=== PATIENT | female | born 1965 | race Caucasian/White ===

== ENCOUNTER 2017-12-29 17:14 | Emergency (ER) | payer BC, OTHER ==
[~2017-12-29] VITALS: Ht 165.1 cm; Wt 75.7 kg
[~2017-12-29 17:14] MED LIST: CALC117719 PO; GABA-486 PO; GABA600T2 PO; INSU100I29 SQ; INSU100V5 SQ; OMEP40CA36 PO; TRAM50TA2 PO
[2017-12-29 17:39] LABS: ABG BASE EXCESS -1.9 MMOL/L (-2.5-2.5); ABG OXYGEN SATURATION 98 % (94-100); ABG PCO2 38 MMHG (35-45); ABG PH 7.38 (7.37-7.43); ABG PO2 86 MMHG (79-93); ABG TCO2 24.1 MMOL/L (21.0-31.0); ALLENS TEST POSITIVE; INSPIRED O2 ROOM AIR; PATIENT TEMP 94.9; VENTILATOR NO
[2017-12-29] MEDS ORDERED: NS IV 1000 ML 1,000 ML IV ONE ×2 (17:49→17:59)
[2017-12-29] MEDS ORDERED: inSUlin (REGULAR) HUMAN 1 UNIT/0.01 ML (CHARGE PER UNIT) IV STA (17:49)
--- NOTE | 2017-12-29 17:57 | ED General ---
General Chief Complaint: Glucose Problems Stated Complaint: HIGH BP Nursing Triage Note: PT TO [facility] WITH CC OF HYPERGLYCEMIA, BLOOD SUGAR TOO HIGH TO READ. IN ER STATES HE THOUGHT SHE HAS NOT TAKEN HER INSULIN FOR 3 DAYS. AMS Nursing Sepsis Screen: No Definite Risk Source of Information: Patient, EMS, Spouse Exam Limitations: Other (patient unable to give history) History of Present Illness Date Seen by Provider: Dec 29, 2017 Time Seen by Provider: 17:57 Initial Comments 52-year-old female patient presents to the emergency department via [facility] with complaints of hyperglycemia, N/V, and altered mental status. reports patient has not taken her insulin for at least 3-4 days. Timing/Duration: 3-4 Days, Getting Worse Allergies and Home Medications Allergies Coded Allergies: No Known Drug Allergies (Unverified , 06/29/16) Home Medications Calcium Carbonate 1,177 Mg Tab.chew, 1,177-2,354 MG PO DAILY PRN for STOMACH UPSET, (Reported) Gabapentin 600 Mg Tablet, 600 MG PO BID, (Reported) Insulin Detemir 100 Unit/1 Ml Insuln.pen, 30 UNITS SQ DAILY, (Reported) LAST FILLED 04/17/16 #15 ML Omeprazole 40 Mg Capsule.dr, 40 MG PO DAILY, (Reported) Tramadol HCl 50 Mg Tablet, 50-100 MG PO Q8H PRN for PAIN, #30 LAST FILLED 01/12/16 #100 Prescribed by: ANGELY MULLINS on 06/30/16 0819 Constitutional: other (patient unable to provide review of systems. Systems obtained from family member.) Gastrointestinal: nausea, vomiting Past Ggfngfc-Ywyiwj-Lbxfnn Hx Patient Social History Alcohol Use: Rarely Uses Alcohol Beverage of Choice: Vodka Recreational Drug Use: No Smoking Status: Current Everyday Smoker Type Used: Cigarettes Recent Foreign Travel: No Contact w/Someone Who Travel: No Recent Infectious Disease Expo: No Recent Hopitalizations: No Immunizations Up To Date Tetanus Booster (TDap): Less than 5yrs PED Vaccines UTD: Yes Date of Influenza Vaccine: Aug 24, 2017 Seasonal Allergies Seasonal Allergies: No Surgeries History of Surgeries: Yes Surgeries: Ear Surgery Respiratory History of Respiratory Disorde: No Cardiovascular History of Cardiac Disorders: Yes Cardiac Disorders: Hypertension Neurological History of Neurological Disord: Yes Neurological Disorders: Neuropathy Reproductive System Hx Reproductive Disorders: No Female Reproductive Disorders: Denies Genitourinary History of Genitourinary Disor: No Gastrointestinal History of Gastrointestinal Di: Yes Gastrointestinal Disorders: Gastroesophageal Reflux, Ulcer Musculoskeletal History of Musculoskeletal Dis: No Endocrine History of Endocrine Disorders: Yes Endocrine Disorders: Diabetes, Insulin dep HEENT History of HEENT Disorders: Yes HEENT Disorders: Cataract Cancer History of Cancer: No Psychosocial History of Psychiatric Problem: No Integumentary History of Skin or Integumenta: No Blood Transfusions History of Blood Disorders: No Reviewed Nursing Assessment Reviewed/Agree w Nursing PMH: Yes Family Medical History Significant Family History: No Pertinent Family Hx Physical Exam Vital Signs Vital Signs - First Documented 12/29/17 17:34 Temp 94.9 Pulse 113 Resp 18 B/P (MAP) 115/76 (89) Pulse Ox 97 O2 Delivery Room Air Capillary Refill : Less Than 3 Seconds General Appearance: No Apparent Distress, Chronically ill Eyes: Bilateral Eye Normal Inspection, Bilateral Eye PERRL, Bilateral Eye EOMI HEENT: PERRL/EOMI, TMs Normal, Normal ENT Inspection, Pharynx Normal, No Moist Mucous Membranes Neck: Normal Inspection, Non Tender, Supple Respiratory: Lungs Clear, Normal Breath Sounds, No Accessory Muscle Use, No Respiratory Distress Cardiovascular: No Edema, No Murmur, Normal Peripheral Pulses, Tachycardia Gastrointestinal: Normal Bowel Sounds, Non Tender, Soft, No Distended, No Guarding, No Rebound Back: Normal Inspection, No CVA Tenderness, No Vertebral Tenderness Extremity: Normal Capillary Refill, No Calf Tenderness, No Pedal Edema Neurologic/Psychiatric: Other (drowsy, arouses to verbal stimuli. Agitated. Moving all 4 extremities.) Skin: Normal Color, Warm/Dry, No Cool, No Cyanosis, No Diaphoresis, No Jaundice Focused Exam Evaluation Lactate Level Laboratory Tests 12/29/17 17:25: Lactic Acid Level 3.50*H 12/29/17 19:55: Lactic Acid Level 2.37*H Lactic Acid Level Laboratory Tests Test 12/29/17 19:55 Lactic Acid Level 2.37 MMOL/L (0.50-2.00) *H Progress/Results/Core Measures Suspected Sepsis Recent Fever Within 48 Hours: No Infection Criteria Present: None New/Unexplained Altered Menta: Yes Sepsis Screen: No Definite Risk Sepsis Diagnosis: SIRS Temperature:94.9 Pulse: 113 Respiratory Rate: 18 Laboratory Tests 12/29/17 17:25: White Blood Count 24.0H Blood Pressure 115 /76 Mean: 89 Laboratory Tests 12/29/17 17:25: Lactic Acid Level 3.50*H 12/29/17 19:55: Lactic Acid Level 2.37*H Laboratory Tests 12/29/17 17:25: Creatinine 4.97H, INR Comment 1.0, Platelet Count 229, Total Bilirubin 0.5 12/29/17 19:40: Creatinine 4.29#H Results/Orders Lab Results Laboratory Tests Test 12/29/17 17:20 12/29/17 17:25 12/29/17 19:17 12/29/17 19:25 Range/Units Glucometer > 600 *H > 600 *H 70-110 MG/DL White Blood Count 24.0 H 4.3-11.0 10^3/uL Red Blood Count 4.48 4.35-5.85 10^6/uL Hemoglobin 13.5 11.5-16.0 G/DL Hematocrit 46 35-52 % Mean Corpuscular Volume 103 H 80-99 FL Mean Corpuscular Hemoglobin 30 25-34 PG Mean Corpuscular Hemoglobin Concent 29 L 32-36 G/DL Red Cell Distribution Width 13.8 10.0-14.5 % Platelet Count 229 130-400 10^3/uL Mean Platelet Volume 7.4-10.4 FL Neutrophils (%) (Auto) 90 H 42-75 % Lymphocytes (%) (Auto) 4 L 12-44 % Monocytes (%) (Auto) 6 0-12 % Eosinophils (%) (Auto) 0 0-10 % Basophils (%) (Auto) 0 0-10 % Neutrophils # (Auto) 21.7 H 1.8-7.8 X 10^3 Lymphocytes # (Auto) 1.0 1.0-4.0 X 10^3 Monocytes # (Auto) 1.3 H 0.0-1.0 X 10^3 Eosinophils # (Auto) 0.0 0.0-0.3 10^3/uL Basophils # (Auto) 0.0 0.0-0.1 10^3/uL Neutrophils % (Manual) 82 % Lymphocytes % (Manual) 6 % Monocytes % (Manual) 7 % Eosinophils % (Manual) 0 % Basophils % (Manual) 0 % Band Neutrophils 5 % Blood Morphology Comment NORMAL Prothrombin Time 12.9 12.2-14.7 SEC INR Comment 1.0 0.8-1.4 Activated Partial Thromboplast Time 20 L 24-35 SEC Blood Gas Puncture Site LEFT RADIAL Blood Gas Patient Temperature 94.9 Arterial Blood pH 7.38 7.37-7.43 Arterial Blood Partial Pressure CO2 38 35-45 MMHG Arterial Blood Partial Pressure O2 86 79-93 MMHG Arterial Blood HCO3 23 23-27 MMOL/L Arterial Blood Total CO2 24.1 21.0-31.0 MMOL/L Arterial Blood Oxygen Saturation 98 94-100 % Arterial Blood Base Excess -1.9 -2.5-2.5 MMOL/L [place] Test POSITIVE Blood Gas Ventilator Setting NO Blood Gas Inspired Oxygen ROOM AIR Sodium Level 137 135-145 MMOL/L Potassium Level 4.0 3.6-5.0 MMOL/L Chloride Level 76 L 98-107 MMOL/L Carbon Dioxide Level 22 21-32 MMOL/L Anion Gap 39 H 5-14 MMOL/L Blood Urea Nitrogen 125 *H 7-18 MG/DL Creatinine 4.97 H 0.60-1.30 MG/DL Estimat Glomerular Filtration Rate 9 BUN/Creatinine Ratio 25 Glucose Level 1557 *H 70-105 MG/DL Lactic Acid Level 3.50 *H 0.50-2.00 MMOL/L Calcium Level 10.6 H 8.5-10.1 MG/DL Magnesium Level 3.6 H 1.8-2.4 MG/DL Total Bilirubin 0.5 0.1-1.0 MG/DL Aspartate Amino Transf (AST/SGOT) 16 5-34 U/L Alanine Aminotransferase (ALT/SGPT) 16 0-55 U/L Alkaline Phosphatase 132 40-136 U/L Total Creatine Kinase 535 H 29-168 U/L Creatine Kinase MB 7.1 *H <6.6 NG/ML Myoglobin 1715.7 H 10.0-92.0 NG/ML Troponin I < 0.30 <0.30 NG/ML Total Protein 8.5 H 6.4-8.2 GM/DL Albumin 4.2 3.2-4.5 GM/DL Lipase 41 8-78 U/L TSH [place] Testing 0.61 0.35-4.94 UIU/ML Serum Alcohol < 10 <10 MG/DL Urine Color YELLOW Urine Clarity CLEAR Urine pH 5 5-9 Urine Specific [place] 1.020 1.016-1.022 Urine Protein NEGATIVE NEGATIVE Urine Glucose (UA) 4+ H NEGATIVE Urine Ketones 2+ H NEGATIVE Urine Nitrite NEGATIVE NEGATIVE Urine Bilirubin NEGATIVE NEGATIVE Urine Urobilinogen NORMAL NORMAL MG/DL Urine Leukocyte Esterase 2+ H NEGATIVE Urine RBC (Auto) 1+ H NEGATIVE Urine RBC 2-5 H /HPF Urine WBC 5-10 H /HPF Urine Squamous Epithelial Cells 0-2 /HPF Urine Crystals NONE /LPF Urine Bacteria MODERATE H /HPF Urine Casts NONE /LPF Urine Mucus NEGATIVE /LPF Urine Culture Indicated YES Urine Opiates Screen NEGATIVE NEGATIVE Urine Oxycodone Screen NEGATIVE NEGATIVE Urine Methadone Screen NEGATIVE NEGATIVE Urine Propoxyphene Screen NEGATIVE NEGATIVE Urine Barbiturates Screen NEGATIVE NEGATIVE Ur Tricyclic Antidepressants Screen NEGATIVE NEGATIVE Urine Phencyclidine Screen NEGATIVE NEGATIVE Urine Amphetamines Screen NEGATIVE NEGATIVE Urine Methamphetamines Screen NEGATIVE NEGATIVE Urine Benzodiazepines Screen NEGATIVE NEGATIVE Urine Cocaine Screen NEGATIVE NEGATIVE Urine Cannabinoids Screen NEGATIVE NEGATIVE Test 12/29/17 19:40 12/29/17 19:55 Range/Units Sodium Level 146 H 135-145 MMOL/L Potassium Level 3.0 L 3.6-5.0 MMOL/L Chloride Level 96 L 98-107 MMOL/L Carbon Dioxide Level 16 L 21-32 MMOL/L Anion Gap 34 H 5-14 MMOL/L Blood Urea Nitrogen 121 *H 7-18 MG/DL Creatinine 4.29 #H 0.60-1.30 MG/DL Estimat Glomerular Filtration Rate 11 BUN/Creatinine Ratio 28 Glucose Level 1192 *H 70-105 MG/DL Calcium Level 9.0 8.5-10.1 MG/DL Lactic Acid Level 2.37 *H 0.50-2.00 MMOL/L My Orders Orders - AMPARO LECHUGA PA Saline Lock/Iv-Start (12/29/17 17:49) Ekg Tracing (12/29/17 17:49) Monitor-Rhythm Ecg Trace Only (12/29/17 17:49) Cbc With Automated Diff (12/29/17 17:49) Comprehensive Metabolic Panel (12/29/17 17:49) Troponin I (12/29/17 17:49) Ua Culture If Indicated (12/29/17 17:49) Ns Iv 1000 Ml (Sodium Chloride 0.9%) (12/29/17 17:49) Chest 1 View, Ap/Pa Only (12/29/17 17:49) Insulin (Regular) Human (Humulin R (Per (12/29/17 17:49) Creatine Kinase (12/29/17 17:59) Creatine Kinase Mb (12/29/17 17:59) Lactic Acid Analyzer (12/29/17 17:59) Lipase (12/29/17 17:59) Magnesium (12/29/17 17:59) Protime With Inr (12/29/17 17:59) Partial Thromboplastin Time (12/29/17 17:59) Thyroid Analyzer (12/29/17 17:59) Blood Culture (12/29/17 17:59) Myoglobin Serum (12/29/17 17:59) Ns Iv 1000 Ml (Sodium Chloride 0.9%) (12/29/17 18:00) Ns Iv 1000 Ml (Sodium Chloride 0.9%) (12/29/17 17:59) Manual Differential (12/29/17 17:25) Catheter(Urinary) Insert & Ass 03,15 (12/29/17 18:12) Alcohol (12/29/17 18:12) Drug Screen Stat (Urine) (12/29/17 18:12) Pantoprazole Injection (Protonix Injecti (12/29/17 18:15) Sputum Culture (12/29/17 18:14) Vital Signs Adult Sepsis Patie Q1H (12/29/17 18:14) Ceftriaxone Injection (Rocephin Injectio (12/29/17 18:14) Remove Rings In Anticipation O (12/29/17 18:14) Basic Metabolic Panel (12/29/17 19:34) Urine Culture (12/29/17 19:25) Insulin Regular Tpn/Drip Only (Humulin R (12/29/17 21:30) Ns (Ivpb) (Sodium Chloride 0.9%) (12/29/17 21:36) Insulin (Regular) Human (Humulin R (Per (12/29/17 21:37) Normal Saline (Ns ([place] Bag)) (12/29/17 21:38) Medications Given in ED Current Medications Medications Dose Ordered Sig/Naila Route Start Time Stop Time Status Last Admin Dose Admin Pantoprazole 80 mg ONCE ONCE IV 12/29/17 18:15 12/29/17 18:16 DC 12/29/17 18:44 80 MG Sodium Chloride 1,000 ml @ 0 mls/hr Q0M ONCE IV 12/29/17 17:49 12/29/17 17:54 DC 12/29/17 17:35 1,000 MLS/HR Sodium Chloride 1,000 ml @ 0 mls/hr Q0M ONCE IV 12/29/17 17:59 12/29/17 18:01 DC 12/29/17 17:35 1,000 MLS/HR Vital Signs/I&O Vital Sign - Last 12Hours 12/29/17 17:34 Temp 94.9 Pulse 113 Resp 18 B/P (MAP) 115/76 (89) Pulse Ox 97 O2 Delivery Room Air Capillary Refill : Less Than 3 Seconds Blood Pressure Mean: 89 ECG Initial ECG Impression Date: Dec 29, 2017 Initial ECG Impression Time: 18:24 Initial ECG Rate: 107 Initial ECG Rhythm: S.Tach Initial ECG Comparisson: No Previous ECG Available Comment Sinus tachycardia with borderline prolonged QT interval. ECG reviewed with Dr. Gibson. Diagnostic Imaging Diagonstic Imaging: Xray Plain Films/CT/US/NM/MRI: chest Comments CHEST 1 VIEW, AP/PA ONLY INDICATION: Hemoptysis. Portable chest at 6:12 PM FINDINGS: Heart size and pulmonary vascularity are normal. Lungs are clear. There are no effusions or pneumothoraces. IMPRESSION: Negative chest. Dictated by: Dictated on workstation # [id number] Reviewed: Reviewed by Me (radiology report reviewed by me) Departure Communication (Admissions) Progress Notes Patient seen and evaluated. Patient unable to tolerate CT scan at this time. 2039 patient case discussed with Dr. Pita Pettit with recommendations for transfer to [facility] for DKA and acute renal failure. Does not feel that CT head is necessary at this time due to elevate BS and ARF. Impression Impression: Primary Impression: DKA (diabetic ketoacidoses) Additional Impressions: Sepsis Acute renal failure Hypermagnesemia Urinary tract infection Altered mental status Disposition: XF SHT-TRM HOSP Condition: Stable Transfer Time Spoke to Accepting Phy: 21:[address] Camacho graciously accepts patient to his ldr nurse service. Transfer Facility: [facility] Method of Transfer: EMS Departure-Patient Inst. Referrals: [facility] (PCP/Family) Primary Care Physician AMPARO LECHUGA Dec 29, 2017 17:57
[2017-12-29 17:59] LABS: BASOPHILS % (AUTO) 0 % (0-10); EOSINOPHILS % (AUTO) 0 % (0-10); HEMATOCRIT 46 % (35-52); HEMOGLOBIN 13.5 G/DL (11.5-16.0); LYMPHOCYTES % (AUTO) 4 % (12-44); MEAN CORPUSCULAR HEMOGLOBIN 30 PG (25-34); MEAN CORPUSCULAR HGB CONC 29 G/DL (32-36); MEAN CORPUSCULAR VOLUME 103 FL (80-99); MONOCYTES # (AUTO) 1.3 X 10^3 (0.0-1.0); MONOCYTES % (AUTO) 6 % (0-12); NEUTROPHILS # (AUTO) 21.7 X 10^3 (1.8-7.8); NEUTROPHILS % (AUTO) 90 % (42-75); PLATELET COUNT 229 10^3/uL (130-400); RED BLOOD COUNT 4.48 10^6/uL (4.35-5.85); RED CELL DISTRIBUTION WIDTH 13.8 % (10.0-14.5)
[2017-12-29] MEDS ORDERED: NS IV 1000 ML 1,000 ML IV SCH (18:00)
[2017-12-29 18:10] LABS: PROTHROMBIN TIME PATIENT 12.9 SEC (12.2-14.7)
[2017-12-29] MEDS ORDERED: cefTRIAXone 1 GM (ROCEPHIN) VIAL IV STA (18:14)
[2017-12-29] MEDS ORDERED: PANTOPRAZOLE 40 MG/10 ML (PROTONIX) VIAL IV ONE (18:15)
[2017-12-29 18:16] LABS: BAND NEUTROPHILS 5 %; LYMPHOCYTES % (MANUAL) 6 %; NEUTROPHILS % (MANUAL) 82 %
[2017-12-29 18:17] LABS: BASOPHILS % (MANUAL) 0 %; EOSINOPHILS % (MANUAL) 0 %; MONOCYTES % (MANUAL) 7 %; RBC MORPH NORMAL
[2017-12-29 18:22] LABS: MAGNESIUM 3.6 MG/DL (1.8-2.4)
[2017-12-29 18:27] LABS: ALANINE AMINOTRANSFERASE 16 U/L (0-55); ALBUMIN 4.2 GM/DL (3.2-4.5); ALKALINE PHOSPHATASE 132 U/L (40-136); BILIRUBIN,TOTAL 0.5 MG/DL (0.1-1.0); BUN/CREATININE RATIO 25; CALCIUM 10.6 MG/DL (8.5-10.1); CARBON DIOXIDE 22 MMOL/L (21-32); CHLORIDE 76 MMOL/L (98-107); CREATININE SERUM 4.97 MG/DL (0.60-1.30); GFR ESTIMATED 9; SODIUM 137 MMOL/L (135-145); TOTAL PROTEIN 8.5 GM/DL (6.4-8.2)
[2017-12-29 18:29] LABS: GLUCOSE 1557 MG/DL (70-105)
--- NOTE | 2017-12-29 18:30 | Diagnostic Imaging Report ---
INDICATION: Hemoptysis. Portable chest at 6:12 PM FINDINGS: Heart size and pulmonary vascularity are normal. Lungs are clear. There are no effusions or pneumothoraces. IMPRESSION: Negative chest. Dictated by: Dictated on workstation # [id number]
[2017-12-29 18:45] LABS: TSH (THYROID ANALYZER) 0.61 UIU/ML (0.35-4.94)
[2017-12-29 18:47] LABS: CREATINE KINASE MB 7.1 NG/ML (<6.6); MYOGLOBIN SERUM 1715.7 NG/ML (10.0-92.0)
[2017-12-29 19:40] LABS: BILIRUBIN,URINE NEGATIVE (NEGATIVE); CLARITY,URINE CLEAR; COLOR,URINE YELLOW; GLUCOSE, URINE (UA) 4+ (NEGATIVE); KETONES,URINE 2+ (NEGATIVE); LEUKOCYTE ESTERASE ,URINE 2+ (NEGATIVE); NITRITE,URINE NEGATIVE (NEGATIVE); PH,URINE 5 (5-9); PROTEIN,URINE NEGATIVE (NEGATIVE); UROBILINOGEN,URINE NORMAL (NORMAL)
[2017-12-29 19:59] LABS: AMPHETAMINE SCREEN, URINE NEGATIVE (NEGATIVE); BARBITURATE SCREEN URINE NEGATIVE (NEGATIVE); BENZODIAZEPINES SCREEN URINE NEGATIVE (NEGATIVE); CANNABINOID SCREEN, URINE NEGATIVE (NEGATIVE); COCAINE SCREEN URINE NEGATIVE (NEGATIVE); METHADONE STAT NEGATIVE (NEGATIVE); METHAMPHETAMINE SCREEN URINE S NEGATIVE (NEGATIVE); OPIATE SCREEN URINE NEGATIVE (NEGATIVE); OXYCODONE STAT NEGATIVE (NEGATIVE); PROPOXYPHENE STAT NEGATIVE (NEGATIVE); TRICYCLIC ANTIDEPRESSANTS SCRE NEGATIVE (NEGATIVE)
[2017-12-29 20:01] LABS: BACTERIA,URINE MODERATE /HPF; SQUAMOUS EPITHELIAL CELL,UR 0-2 /HPF
[2017-12-29 20:13] LABS: CREATININE SERUM 4.29 MG/DL (0.60-1.30)
[2017-12-29] MEDS ORDERED: inSUlin REGULAR TPN/DRIP ONLY 250 UNITS in NORMAL SALINE 250 ML IV SCH (21:30)
[2017-12-29] MEDS ORDERED: NS (IVPB) 250 ML ONE (21:36)
[2017-12-29] MEDS ORDERED: inSUlin (REGULAR) HUMAN 1 UNIT/0.01 ML (CHARGE PER UNIT) ONE (21:37)
[2017-12-29] MEDS ORDERED: NORMAL SALINE 0 ML ONE (21:38)
[2017-12-29 22:20] VITALS: BP 96/78
== END 2017-12-29 22:20 | disposition short-term general hospital (02) ==
LOC: EDUNIT# 17:14 → ER 17:15
DX: E11.10 Type 2 diabetes mellitus with ketoacidosis without coma (principal); A41.9 Sepsis, unspecified organism; N17.9 Acute kidney failure, unspecified; E83.41 Hypermagnesemia; N39.0 Urinary tract infection, site not specified; I10 Essential (primary) hypertension; K21.9 Gastro-esophageal reflux disease without esophagitis; E11.40 Type 2 diabetes mellitus with diabetic neuropathy, unspecified; F17.210 Nicotine dependence, cigarettes, uncomplicated; Z79.4 Long term (current) use of insulin
CPT/HCPCS: 36415; 51702; 71045; 80048; 80053; 80306; 80320; 81000; 82550; 82553; 82805; 82962; 83605; 83690; 83735; 83874; 84443; 84484; 85007; 85027; 85610; 85730; 87040; 87077; 87088; 87186; 93005; 93041; 96361; 96374; 96375

== ENCOUNTER 2023-03-02 06:45 | Outpatient (CLI) | payer OTHER ==
[~2023-03-02] VITALS: Ht 165.1 cm; Wt 78.2 kg
[~2023-03-02 06:45] MED LIST changes: -GABA600T2 PO; +GBPN600T PO; -INSU100I29 SQ; +INSU100I30 SQ; -OMEP40CA36 PO; +OMEP40CA6 PO; -TRAM50TA2 PO; +TRM50T PO
[2023-03-02] MEDS ORDERED: CETI10TA17 PO (10:02)
[2023-03-02] MEDS ORDERED: RT-ALBUINH INH (10:02)
[2023-03-02] MEDS ORDERED: ROSU40TA23 PO (10:02)
[2023-03-02] MEDS ORDERED: LISI10TA25 PO (10:02)
[2023-03-02] MEDS ORDERED: DULA4.5P SQ (10:02)
== END 2023-03-02 10:39 | disposition home or self-care (01) ==
LOC: PREOP 06:45
PROVIDERS: ATTEND Surgery
DX: Z01.818 Encounter for other preprocedural examination (principal)

== ENCOUNTER 2023-09-27 15:03 | Emergency (ER) | payer OTHER, MEDICAID ==
[~2023-09-27] VITALS: Ht 165 cm; Wt 78.0 kg
[~2023-09-27 15:03] MED LIST changes: +CETI10TA17 PO; +DULA4.5P SQ; +LISI10TA25 PO; +ROSU40TA23 PO; +RT-ALBUINH INH
[2023-09-27 15:40] VITALS: BP 126/69
== END 2023-09-27 17:27 | disposition left against medical advice (07) ==
LOC: EDUNIT# 15:03 → ER 15:04
DX: K59.00 Constipation, unspecified (principal)
CPT/HCPCS: 99281